=== PATIENT | male | born 1975 | race Caucasian/White ===

== ENCOUNTER 2017-11-27 17:24 | Inpatient (IN) | payer BC ==
[2017-11-27] MEDS ORDERED: MICONAZOLE 2% 57 GM Ointment TOP (19:00)
[2017-11-27] MEDS ORDERED: MAGNESIUM HYDROXIDE 30ML CUP GTB (19:00)
[2017-11-27] MEDS ORDERED: BISACODYL 10 MG SUPP PR (19:00)
[2017-11-27] MEDS: ALBUTEROL/IPRATROPIUM (NEB) 3 ML AMP HHN (19:56)
[2017-11-27] MEDS: DOCUSATE SODIUM 10 MG/ML (10ML CUP) GTB (22:10)
[2017-11-27] MEDS: RANITIDINE (15 MG/ML) 10ML CUP GTB (22:10)
[2017-11-27] MEDS: MICONAZOLE 2% 57 GM Ointment TOP (22:11)
[2017-11-27] MEDS: ATORVASTATIN 10 MG TAB GTB (22:11)
[2017-11-27] MEDS: HEPARIN 5,000 UNIT/0.5 ML VIAL SC (22:22)
[2017-11-28 06:34] LABS: ADD MAN DIFF? NO
[2017-11-28 06:43] LABS: WHITE BLOOD COUNT 9.6 10^3/ul (4.8-10.8)
[2017-11-28 06:43] LABS: ABNORMAL IP MESSAGE 1; BASOPHIL # 0.1 10^3/ul (0.0-0.1); BASOPHILS % 0.8 % (0.0-2.0); EOSINOPHILS # 1.2 10^3/ul (0.0-0.5); EOSINOPHILS % 12.4 % (0.0-7.0); HEMOGLOBIN 12.4 g/dl (14.0-18.0); LYMPHOCYTES # 1.5 10^3/ul (0.8-2.9); LYMPHOCYTES % 15.5 % (15.0-51.0); MEAN CORPUSCULAR HGB CONC 32.6 g/dl (32.0-37.0); MONOCYTE # 0.9 10^3/ul (0.3-0.9); MONOCYTES % 8.9 % (0.0-11.0); PLATELET COUNT 376 10^3/UL (140-415); POSITIVE DIFF @See below; RED BLOOD COUNT 4.13 10^6/ul (4.70-6.10); RED CELL DISTRIBUTION WIDTH 13.6 % (11.5-14.5)
[2017-11-28 07:08] LABS: ALANINE AMINOTRANSFERASE 51 IU/L (13-69); ALBUMIN 3.8 g/dl (3.3-4.9); ALBUMIN/GLOBULIN RATIO 1.08; ALKALINE PHOSPHATASE 127 IU/L (42-121); ANION GAP 14 (8-16); ASPARTATE AMINO TRANSFERASE 23 IU/L (15-46); BLOOD UREA NITROGEN 21 mg/dl (7-20); CALCIUM 9.8 mg/dl (8.4-10.2); CARBON DIOXIDE 31 mmol/L (21-31); CHLORIDE 100 mmol/L (97-110); CREATININE 0.68 mg/dl (0.61-1.24); GLUCOSE 109 mg/dl (70-220); SODIUM 141 mmol/L (135-144); TOTAL PROTEIN 7.3 g/dl (6.1-8.1)
[2017-11-28] MEDS: MODAFINIL 200 MG TAB GTB ×2 (09:00→11:34)
[2017-11-28] MEDS: ALBUTEROL/IPRATROPIUM (NEB) 3 ML AMP HHN ×3 (09:13→21:20)
[2017-11-28] MEDS: DOCUSATE SODIUM 10 MG/ML (10ML CUP) GTB ×2 (09:40→21:43)
[2017-11-28] MEDS: POLYETHYLENE GLYCOL 17 GM PACKET GTB (09:40)
[2017-11-28] MEDS: MICONAZOLE 2% 57 GM Ointment TOP ×2 (09:40→21:44)
[2017-11-28] MEDS: RANITIDINE (15 MG/ML) 10ML CUP GTB ×2 (09:40→21:43)
[2017-11-28] MEDS: CLOPIDOGREL 75 MG TAB GTB (09:42)
[2017-11-28] MEDS: ASPIRIN 81 MG TAB GTB (09:42)
[2017-11-28] MEDS: HEPARIN 5,000 UNIT/0.5 ML VIAL SC ×2 (09:42→22:05)
[2017-11-28] MEDS: LISINOPRIL 5 MG TAB GTB (09:43)
[2017-11-28] MEDS: BACLOFEN 10 MG TAB GTB ×2 (11:34→21:43)
[2017-11-28] MEDS: LORAZEPAM 0.5 MG TAB PO ×2 (11:35→22:06)
[2017-11-28] MEDS: ATORVASTATIN 10 MG TAB GTB (21:43)
[2017-11-29] MEDS: ALBUTEROL/IPRATROPIUM (NEB) 3 ML AMP HHN ×3 (07:29→21:21)
[2017-11-29] MEDS: RANITIDINE (15 MG/ML) 10ML CUP GTB ×2 (08:59→21:28)
[2017-11-29] MEDS: POLYETHYLENE GLYCOL 17 GM PACKET GTB (08:59)
[2017-11-29] MEDS: HEPARIN 5,000 UNIT/0.5 ML VIAL SC ×2 (09:00→21:43)
[2017-11-29] MEDS: DOCUSATE SODIUM 10 MG/ML (10ML CUP) GTB ×2 (09:00→21:28)
[2017-11-29] MEDS: MODAFINIL 200 MG TAB GTB (09:00)
[2017-11-29] MEDS: ASPIRIN 81 MG TAB GTB (09:00)
[2017-11-29] MEDS: BACLOFEN 10 MG TAB GTB ×2 (09:01→21:28)
[2017-11-29] MEDS: LISINOPRIL 5 MG TAB GTB (09:01)
[2017-11-29] MEDS: MICONAZOLE 2% 57 GM Ointment TOP ×2 (09:01→21:40)
[2017-11-29] MEDS: CLOPIDOGREL 75 MG TAB GTB (09:01)
[2017-11-29] MEDS: ATORVASTATIN 10 MG TAB GTB (21:28)
[2017-11-29] MEDS: LORAZEPAM 0.5 MG TAB PO (21:31)
[2017-11-29] MEDS: ACETAMINOPHEN 650MG/20.3ML CUP GTB (21:31)
[2017-11-30] MEDS: ACETAMINOPHEN 650MG/20.3ML CUP GTB (06:38)
[2017-11-30] MEDS: LORAZEPAM 0.5 MG TAB PO (06:38)
[2017-11-30] MEDS: ALBUTEROL/IPRATROPIUM (NEB) 3 ML AMP HHN ×3 (07:58→19:19)
[2017-11-30] MEDS: CLOPIDOGREL 75 MG TAB GTB (10:10)
[2017-11-30] MEDS: BACLOFEN 10 MG TAB GTB ×2 (10:10→21:56)
[2017-11-30] MEDS: POLYETHYLENE GLYCOL 17 GM PACKET GTB (10:11)
[2017-11-30] MEDS: RANITIDINE (15 MG/ML) 10ML CUP GTB ×2 (10:11→21:57)
[2017-11-30] MEDS: DOCUSATE SODIUM 10 MG/ML (10ML CUP) GTB ×2 (10:12→21:54)
[2017-11-30] MEDS: ASPIRIN 81 MG TAB GTB (10:12)
[2017-11-30] MEDS: MODAFINIL 200 MG TAB GTB (10:13)
[2017-11-30] MEDS: LISINOPRIL 5 MG TAB GTB (10:13)
[2017-11-30] MEDS: HEPARIN 5,000 UNIT/0.5 ML VIAL SC ×2 (10:14→21:59)
[2017-11-30] MEDS: MICONAZOLE 2% 57 GM Ointment TOP ×2 (10:19→22:00)
[2017-11-30] MEDS: ATORVASTATIN 10 MG TAB GTB (21:55)
[2017-12-01] MEDS: ALBUTEROL/IPRATROPIUM (NEB) 3 ML AMP HHN ×3 (07:47→19:59)
[2017-12-01] MEDS: MICONAZOLE 2% 57 GM Ointment TOP ×2 (08:55→22:31)
[2017-12-01] MEDS: HEPARIN 5,000 UNIT/0.5 ML VIAL SC ×2 (08:56→22:29)
[2017-12-01] MEDS: RANITIDINE (15 MG/ML) 10ML CUP GTB ×2 (08:57→22:24)
[2017-12-01] MEDS: DOCUSATE SODIUM 10 MG/ML (10ML CUP) GTB ×2 (08:57→22:24)
[2017-12-01] MEDS: ASPIRIN 81 MG TAB GTB (08:57)
[2017-12-01] MEDS: POLYETHYLENE GLYCOL 17 GM PACKET GTB (08:57)
[2017-12-01] MEDS: BACLOFEN 10 MG TAB GTB ×2 (08:58→22:25)
[2017-12-01] MEDS: CLOPIDOGREL 75 MG TAB GTB (08:58)
[2017-12-01] MEDS: MODAFINIL 200 MG TAB GTB (08:59)
[2017-12-01] MEDS: LISINOPRIL 5 MG TAB GTB (08:59)
[2017-12-01 13:10] LABS: ADD UMIC YES; UR AMORPHOUS CRYSTAL FEW /HPF (NONE SEEN); UR ASCORBIC ACID 40 mg/dL (NEGATIVE); UR BACTERIA FEW /HPF (NONE SEEN); UR BILIRUBIN (Dip) NEGATIVE (NEGATIVE); UR BLOOD (Dip) NEGATIVE (NEGATIVE); UR CLARITY CLOUDY (CLEAR); UR COLOR YELLOW (YELLOW); UR GLUCOSE (Dip) NEGATIVE (NEGATIVE); UR KETONES (Dip) NEGATIVE (NEGATIVE); UR LEUKOCYTE ESTERASE (Dip) NEGATIVE Leu/ul (NEGATIVE); UR NITRITE (Dip) NEGATIVE (NEGATIVE); UR RBC 3 /HPF (0-5); UR SPECIFIC GRAVITY (Dip) 1.017 (1.003-1.030); UR TOTAL PROTEIN (Dip) NEGATIVE (NEGATIVE); UR UROBILINOGEN (Dip) 2+ mg/dL (NEGATIVE); UR WBC 7 /HPF (0-5)
[2017-12-01] MEDS: ATORVASTATIN 10 MG TAB GTB (22:24)
[2017-12-02 07:27] LABS: ADD MAN DIFF? NO
[2017-12-02 07:35] LABS: ABNORMAL IP MESSAGE 1; BASOPHIL # 0.1 10^3/ul (0.0-0.1); BASOPHILS % 0.9 % (0.0-2.0); EOSINOPHILS % 13.7 % (0.0-7.0); HEMATOCRIT 35.4 % (42.0-52.0); HEMOGLOBIN 11.5 g/dl (14.0-18.0); LYMPHOCYTES # 1.7 10^3/ul (0.8-2.9); LYMPHOCYTES % 21.8 % (15.0-51.0); MEAN CORPUSCULAR HEMOGLOBIN 30.2 pg (29.0-33.0); MEAN CORPUSCULAR HGB CONC 32.5 g/dl (32.0-37.0); MEAN CORPUSCULAR VOLUME 92.9 fl (82.0-101.0); MEAN PLATELET VOLUME 11.1 fl (7.4-10.4); MONOCYTE # 0.8 10^3/ul (0.3-0.9); MONOCYTES % 9.9 % (0.0-11.0); NEUTROPHIL # 4.1 10^3/ul (1.6-7.5); NEUTROPHILS % 53.4 % (39.0-77.0); PLATELET COUNT 321 10^3/UL (140-415); POSITIVE DIFF @See below; RED BLOOD COUNT 3.81 10^6/ul (4.70-6.10); RED CELL DISTRIBUTION WIDTH 13.6 % (11.5-14.5)
[2017-12-02 07:35] LABS: WHITE BLOOD COUNT 7.6 10^3/ul (4.8-10.8)
[2017-12-02 07:55] LABS: ANION GAP 14 (8-16); BLOOD UREA NITROGEN 18 mg/dl (7-20); CALCIUM 9.4 mg/dl (8.4-10.2); CARBON DIOXIDE 29 mmol/L (21-31); CHLORIDE 101 mmol/L (97-110); CREATININE 0.61 mg/dl (0.61-1.24); GLUCOSE 99 mg/dl (70-220); MAGNESIUM 2.1 mg/dl (1.7-2.5); PHOSPHORUS 4.6 mg/dl (2.5-4.9); SODIUM 140 mmol/L (135-144)
[2017-12-02] MEDS: RANITIDINE (15 MG/ML) 10ML CUP GTB ×2 (09:30→20:20)
[2017-12-02] MEDS: POLYETHYLENE GLYCOL 17 GM PACKET GTB (09:30)
[2017-12-02] MEDS: DOCUSATE SODIUM 10 MG/ML (10ML CUP) GTB ×2 (09:30→20:20)
[2017-12-02] MEDS: HEPARIN 5,000 UNIT/0.5 ML VIAL SC ×2 (09:31→20:21)
[2017-12-02] MEDS: LISINOPRIL 5 MG TAB GTB (09:31)
[2017-12-02] MEDS: BACLOFEN 10 MG TAB GTB ×2 (09:31→20:21)
[2017-12-02] MEDS: CLOPIDOGREL 75 MG TAB GTB (09:32)
[2017-12-02] MEDS: ASPIRIN 81 MG TAB GTB (09:32)
[2017-12-02] MEDS: MICONAZOLE 2% 57 GM Ointment TOP ×2 (09:37→20:26)
[2017-12-02] MEDS: MODAFINIL 200 MG TAB GTB (09:37)
[2017-12-02] MEDS: ALBUTEROL/IPRATROPIUM (NEB) 3 ML AMP HHN ×3 (11:00→19:48)
[2017-12-02] MEDS: ATORVASTATIN 10 MG TAB GTB (20:21)
[2017-12-02] MEDS: LORAZEPAM 0.5 MG TAB PO (20:26)
[2017-12-03] MEDS: ALBUTEROL/IPRATROPIUM (NEB) 3 ML AMP HHN ×3 (07:52→19:46)
[2017-12-03] MEDS: MODAFINIL 200 MG TAB GTB (09:46)
[2017-12-03] MEDS: CLOPIDOGREL 75 MG TAB GTB (09:46)
[2017-12-03] MEDS: HEPARIN 5,000 UNIT/0.5 ML VIAL SC ×2 (09:47→21:25)
[2017-12-03] MEDS: BACLOFEN 10 MG TAB GTB ×2 (09:48→21:11)
[2017-12-03] MEDS: ASPIRIN 81 MG TAB GTB (09:48)
[2017-12-03] MEDS: DOCUSATE SODIUM 10 MG/ML (10ML CUP) GTB ×2 (09:48→21:09)
[2017-12-03] MEDS: RANITIDINE (15 MG/ML) 10ML CUP GTB ×2 (09:49→21:09)
[2017-12-03] MEDS: LISINOPRIL 5 MG TAB GTB (09:49)
[2017-12-03] MEDS: POLYETHYLENE GLYCOL 17 GM PACKET GTB (09:49)
[2017-12-03] MEDS: MICONAZOLE 2% 57 GM Ointment TOP ×2 (14:15→21:11)
[2017-12-03] MEDS: LORAZEPAM 0.5 MG TAB PO (18:36)
[2017-12-03] MEDS: ATORVASTATIN 10 MG TAB GTB (21:10)
[2017-12-04] MEDS: ALBUTEROL/IPRATROPIUM (NEB) 3 ML AMP HHN ×3 (08:05→21:14)
[2017-12-04] MEDS: MODAFINIL 200 MG TAB GTB (09:00)
[2017-12-04] MEDS: LISINOPRIL 5 MG TAB GTB ×2 (09:00→11:19)
[2017-12-04] MEDS: DOCUSATE SODIUM 10 MG/ML (10ML CUP) GTB ×2 (09:06→21:12)
[2017-12-04] MEDS: CLOPIDOGREL 75 MG TAB GTB (09:06)
[2017-12-04] MEDS: ASPIRIN 81 MG TAB GTB (09:06)
[2017-12-04] MEDS: RANITIDINE (15 MG/ML) 10ML CUP GTB ×2 (09:07→21:12)
[2017-12-04] MEDS: BACLOFEN 10 MG TAB GTB ×2 (09:07→21:13)
[2017-12-04] MEDS: POLYETHYLENE GLYCOL 17 GM PACKET GTB (09:07)
[2017-12-04] MEDS: HEPARIN 5,000 UNIT/0.5 ML VIAL SC ×2 (09:36→21:25)
[2017-12-04] MEDS: MICONAZOLE 2% 57 GM Ointment TOP ×2 (11:20→21:22)
[2017-12-04] MEDS: ATORVASTATIN 10 MG TAB GTB (21:13)
[2017-12-05] MEDS: ALBUTEROL/IPRATROPIUM (NEB) 3 ML AMP HHN ×3 (08:11→20:29)
[2017-12-05] MEDS: DOCUSATE SODIUM 10 MG/ML (10ML CUP) GTB ×2 (09:42→21:29)
[2017-12-05] MEDS: POLYETHYLENE GLYCOL 17 GM PACKET GTB (09:42)
[2017-12-05] MEDS: RANITIDINE (15 MG/ML) 10ML CUP GTB ×2 (09:42→21:30)
[2017-12-05] MEDS: MODAFINIL 200 MG TAB GTB (09:42)
[2017-12-05] MEDS: MICONAZOLE 2% 57 GM Ointment TOP (09:42)
[2017-12-05] MEDS: CLOPIDOGREL 75 MG TAB GTB (09:42)
[2017-12-05] MEDS: LISINOPRIL 5 MG TAB GTB (09:44)
[2017-12-05] MEDS: ASPIRIN 81 MG TAB GTB (09:44)
[2017-12-05] MEDS: BACLOFEN 10 MG TAB GTB ×2 (09:44→21:29)
[2017-12-05] MEDS: HEPARIN 5,000 UNIT/0.5 ML VIAL SC ×2 (09:55→21:44)
[2017-12-05] MEDS: ATORVASTATIN 10 MG TAB GTB (21:29)
[2017-12-06] MEDS: ALBUTEROL/IPRATROPIUM (NEB) 3 ML AMP HHN ×2 (08:00→15:47)
[2017-12-06] MEDS: ASPIRIN 81 MG TAB GTB (09:33)
[2017-12-06] MEDS: DOCUSATE SODIUM 10 MG/ML (10ML CUP) GTB ×2 (09:33→20:11)
[2017-12-06] MEDS: POLYETHYLENE GLYCOL 17 GM PACKET GTB (09:34)
[2017-12-06] MEDS: BACLOFEN 10 MG TAB GTB ×2 (09:34→20:11)
[2017-12-06] MEDS: CLOPIDOGREL 75 MG TAB GTB (09:34)
[2017-12-06] MEDS: LISINOPRIL 5 MG TAB GTB (09:35)
[2017-12-06] MEDS: RANITIDINE (15 MG/ML) 10ML CUP GTB ×2 (09:35→20:11)
[2017-12-06] MEDS: MODAFINIL 200 MG TAB GTB (09:35)
[2017-12-06] MEDS: HEPARIN 5,000 UNIT/0.5 ML VIAL SC ×2 (10:00→20:32)
[2017-12-06] MEDS: LORAZEPAM 0.5 MG TAB PO (17:09)
[2017-12-06] MEDS: ATORVASTATIN 10 MG TAB GTB (20:16)
[2017-12-07] MEDS: LORAZEPAM 0.5 MG TAB PO (01:15)
[2017-12-07] MEDS: ALBUTEROL/IPRATROPIUM (NEB) 3 ML AMP HHN ×3 (07:57→21:19)
[2017-12-07] MEDS: MODAFINIL 200 MG TAB GTB (09:46)
[2017-12-07] MEDS: BACLOFEN 10 MG TAB GTB ×2 (09:47→21:02)
[2017-12-07] MEDS: DOCUSATE SODIUM 10 MG/ML (10ML CUP) GTB ×2 (09:47→21:02)
[2017-12-07] MEDS: RANITIDINE (15 MG/ML) 10ML CUP GTB ×2 (09:47→21:02)
[2017-12-07] MEDS: CLOPIDOGREL 75 MG TAB GTB (09:48)
[2017-12-07] MEDS: LISINOPRIL 5 MG TAB GTB (09:48)
[2017-12-07] MEDS: ASPIRIN 81 MG TAB GTB (09:48)
[2017-12-07] MEDS: POLYETHYLENE GLYCOL 17 GM PACKET GTB (09:49)
[2017-12-07] MEDS: HEPARIN 5,000 UNIT/0.5 ML VIAL SC ×2 (10:16→21:18)
[2017-12-07] MEDS: ATORVASTATIN 10 MG TAB GTB (21:03)
[2017-12-08] MEDS: RANITIDINE (15 MG/ML) 10ML CUP GTB ×2 (09:38→21:47)
[2017-12-08] MEDS: POLYETHYLENE GLYCOL 17 GM PACKET GTB (09:38)
[2017-12-08] MEDS: DOCUSATE SODIUM 10 MG/ML (10ML CUP) GTB ×2 (09:38→21:47)
[2017-12-08] MEDS: BACLOFEN 10 MG TAB GTB ×2 (09:39→21:47)
[2017-12-08] MEDS: MODAFINIL 200 MG TAB GTB (09:39)
[2017-12-08] MEDS: CLOPIDOGREL 75 MG TAB GTB (09:39)
[2017-12-08] MEDS: LISINOPRIL 5 MG TAB GTB (09:39)
[2017-12-08] MEDS: ASPIRIN 81 MG TAB GTB (09:40)
[2017-12-08] MEDS: HEPARIN 5,000 UNIT/0.5 ML VIAL SC ×2 (09:43→21:50)
[2017-12-08] MEDS: ALBUTEROL/IPRATROPIUM (NEB) 3 ML AMP HHN ×4 (09:58→20:13)
[2017-12-08] MEDS: ATORVASTATIN 10 MG TAB GTB (21:48)
[2017-12-09] MEDS: ALBUTEROL/IPRATROPIUM (NEB) 3 ML AMP HHN ×3 (07:42→20:00)
[2017-12-09] MEDS: HEPARIN 5,000 UNIT/0.5 ML VIAL SC ×2 (10:31→21:37)
[2017-12-09] MEDS: MODAFINIL 200 MG TAB GTB (10:32)
[2017-12-09] MEDS: LISINOPRIL 5 MG TAB GTB (10:33)
[2017-12-09] MEDS: BACLOFEN 10 MG TAB GTB ×2 (10:34→21:36)
[2017-12-09] MEDS: ASPIRIN 81 MG TAB GTB (10:34)
[2017-12-09] MEDS: DOCUSATE SODIUM 10 MG/ML (10ML CUP) GTB ×2 (10:36→21:34)
[2017-12-09] MEDS: POLYETHYLENE GLYCOL 17 GM PACKET GTB (10:36)
[2017-12-09] MEDS: CLOPIDOGREL 75 MG TAB GTB (10:37)
[2017-12-09] MEDS: RANITIDINE (15 MG/ML) 10ML CUP GTB ×2 (10:38→21:34)
[2017-12-09] MEDS: ATORVASTATIN 10 MG TAB GTB (21:35)
[2017-12-10] MEDS: ALBUTEROL/IPRATROPIUM (NEB) 3 ML AMP HHN ×3 (07:32→19:41)
[2017-12-10] MEDS: ASPIRIN 81 MG TAB GTB (09:17)
[2017-12-10] MEDS: POLYETHYLENE GLYCOL 17 GM PACKET GTB (09:17)
[2017-12-10] MEDS: DOCUSATE SODIUM 10 MG/ML (10ML CUP) GTB ×2 (09:17→21:32)
[2017-12-10] MEDS: BACLOFEN 10 MG TAB GTB ×2 (09:18→21:33)
[2017-12-10] MEDS: MODAFINIL 200 MG TAB GTB (09:18)
[2017-12-10] MEDS: RANITIDINE (15 MG/ML) 10ML CUP GTB ×2 (09:18→21:32)
[2017-12-10] MEDS: LORAZEPAM 0.5 MG TAB PO (09:18)
[2017-12-10] MEDS: LISINOPRIL 5 MG TAB GTB (09:18)
[2017-12-10] MEDS: CLOPIDOGREL 75 MG TAB GTB (09:19)
[2017-12-10] MEDS: AZITHROMYCIN 250 MG TAB PO (11:19)
[2017-12-10 12:04] LABS: ADD MAN DIFF? NO
[2017-12-10 12:07] LABS: BASOPHIL # 0.1 10^3/ul (0.0-0.1); BASOPHILS % 0.7 % (0.0-2.0); EOSINOPHILS # 0.2 10^3/ul (0.0-0.5); EOSINOPHILS % 2.1 % (0.0-7.0); HEMATOCRIT 38.4 % (42.0-52.0); HEMOGLOBIN 12.4 g/dl (14.0-18.0); LYMPHOCYTES # 1.3 10^3/ul (0.8-2.9); LYMPHOCYTES % 18.1 % (15.0-51.0); MEAN CORPUSCULAR HEMOGLOBIN 29.6 pg (29.0-33.0); MEAN CORPUSCULAR HGB CONC 32.3 g/dl (32.0-37.0); MEAN CORPUSCULAR VOLUME 91.6 fl (82.0-101.0); MEAN PLATELET VOLUME 10.8 fl (7.4-10.4); MONOCYTE # 0.6 10^3/ul (0.3-0.9); MONOCYTES % 8.7 % (0.0-11.0); NEUTROPHIL # 4.9 10^3/ul (1.6-7.5); PLATELET COUNT 313 10^3/UL (140-415); RED BLOOD COUNT 4.19 10^6/ul (4.70-6.10); RED CELL DISTRIBUTION WIDTH 13.2 % (11.5-14.5)
[2017-12-10 12:29] LABS: ANION GAP 14 (8-16); BLOOD UREA NITROGEN 18 mg/dl (7-20); CALCIUM 9.7 mg/dl (8.4-10.2); CARBON DIOXIDE 27 mmol/L (21-31); CHLORIDE 101 mmol/L (97-110); CREATININE 0.59 mg/dl (0.61-1.24); GLUCOSE 99 mg/dl (70-220); POTASSIUM 4.4 mmol/L (3.5-5.1); SODIUM 138 mmol/L (135-144)
[2017-12-10] MEDS: ATORVASTATIN 10 MG TAB GTB (21:32)
[2017-12-11] MEDS: ALBUTEROL/IPRATROPIUM (NEB) 3 ML AMP HHN ×3 (08:34→19:17)
[2017-12-11] MEDS: POLYETHYLENE GLYCOL 17 GM PACKET GTB (09:00)
[2017-12-11] MEDS: ASPIRIN 81 MG TAB GTB (09:30)
[2017-12-11] MEDS: CLOPIDOGREL 75 MG TAB GTB (09:31)
[2017-12-11] MEDS: AZITHROMYCIN 250 MG TAB PO (09:31)
[2017-12-11] MEDS: LISINOPRIL 5 MG TAB GTB (09:32)
[2017-12-11] MEDS: BACLOFEN 10 MG TAB GTB ×2 (09:32→21:04)
[2017-12-11] MEDS: HEPARIN 5,000 UNIT/0.5 ML VIAL SC ×2 (09:35→21:21)
[2017-12-11] MEDS: MODAFINIL 200 MG TAB GTB (10:27)
[2017-12-11] MEDS ORDERED: ACETAMINOPHEN 650MG/20.3ML CUP PO (13:00)
[2017-12-11] MEDS ORDERED: RANITIDINE (15 MG/ML) 10ML CUP PO (21:00)
[2017-12-11] MEDS: RANITIDINE 150 MG TAB PO (21:03)
[2017-12-11] MEDS: DOCUSATE SODIUM 100 MG CAP PO (21:04)
[2017-12-11] MEDS: ATORVASTATIN 10 MG TAB GTB (21:04)
[2017-12-12] MEDS: ALBUTEROL/IPRATROPIUM (NEB) 3 ML AMP HHN ×3 (07:25→20:04)
[2017-12-12] MEDS: ASPIRIN 81 MG TAB GTB (10:28)
[2017-12-12] MEDS: POLYETHYLENE GLYCOL 17 GM PACKET GTB (10:28)
[2017-12-12] MEDS: AZITHROMYCIN 250 MG TAB PO (10:28)
[2017-12-12] MEDS: RANITIDINE 150 MG TAB PO ×2 (10:28→21:30)
[2017-12-12] MEDS: MODAFINIL 200 MG TAB GTB (10:28)
[2017-12-12] MEDS: DOCUSATE SODIUM 100 MG CAP PO ×2 (10:29→21:30)
[2017-12-12] MEDS: BACLOFEN 10 MG TAB GTB ×2 (10:29→21:30)
[2017-12-12] MEDS: LISINOPRIL 5 MG TAB GTB (10:29)
[2017-12-12] MEDS: HEPARIN 5,000 UNIT/0.5 ML VIAL SC ×2 (10:30→21:39)
[2017-12-12] MEDS: CLOPIDOGREL 75 MG TAB GTB (10:31)
[2017-12-12] MEDS: ATORVASTATIN 10 MG TAB GTB (21:31)
[2017-12-13] MEDS: HEPARIN 5,000 UNIT/0.5 ML VIAL SC (09:00)
[2017-12-13] MEDS: ASPIRIN 81 MG TAB GTB (09:00)
[2017-12-13] MEDS: ALBUTEROL/IPRATROPIUM (NEB) 3 ML AMP HHN ×3 (09:18→19:42)
[2017-12-13] MEDS: POLYETHYLENE GLYCOL 17 GM PACKET GTB (10:07)
[2017-12-13] MEDS: CLOPIDOGREL 75 MG TAB GTB (10:07)
[2017-12-13] MEDS: AZITHROMYCIN 250 MG TAB PO (10:07)
[2017-12-13] MEDS: DOCUSATE SODIUM 100 MG CAP PO ×2 (10:07→21:25)
[2017-12-13] MEDS: RANITIDINE 150 MG TAB PO ×2 (10:08→21:25)
[2017-12-13] MEDS: MODAFINIL 200 MG TAB GTB (10:08)
[2017-12-13] MEDS: BACLOFEN 10 MG TAB GTB (10:08)
[2017-12-13] MEDS: LISINOPRIL 5 MG TAB GTB (10:08)
[2017-12-13] MEDS ORDERED: MAGNESIUM HYDROXIDE 30ML CUP PO (16:30)
[2017-12-13] MEDS: BACLOFEN 10 MG TAB PO (21:26)
[2017-12-13] MEDS: ATORVASTATIN 10 MG TAB PO (21:26)
[2017-12-14] MEDS: ALBUTEROL/IPRATROPIUM (NEB) 3 ML AMP HHN ×3 (08:11→21:50)
[2017-12-14] MEDS: POLYETHYLENE GLYCOL 17 GM PACKET PO (09:00)
[2017-12-14] MEDS: LISINOPRIL 5 MG TAB PO ×2 (09:00→09:34)
[2017-12-14] MEDS: AZITHROMYCIN 250 MG TAB PO (09:32)
[2017-12-14] MEDS: DOCUSATE SODIUM 100 MG CAP PO ×2 (09:32→20:08)
[2017-12-14] MEDS: MODAFINIL 200 MG TAB PO (09:32)
[2017-12-14] MEDS: RANITIDINE 150 MG TAB PO ×2 (09:32→20:08)
[2017-12-14] MEDS: CLOPIDOGREL 75 MG TAB PO (09:32)
[2017-12-14] MEDS: BACLOFEN 10 MG TAB PO ×2 (09:33→20:09)
[2017-12-14] MEDS: ASPIRIN 81 MG TAB PO (09:34)
[2017-12-14] MEDS: ATORVASTATIN 10 MG TAB PO (20:10)
[2017-12-15] MEDS: ALBUTEROL/IPRATROPIUM (NEB) 3 ML AMP HHN ×3 (07:49→20:41)
[2017-12-15] MEDS: POLYETHYLENE GLYCOL 17 GM PACKET PO (09:00)
[2017-12-15] MEDS: RANITIDINE 150 MG TAB PO ×2 (10:05→20:13)
[2017-12-15] MEDS: CLOPIDOGREL 75 MG TAB PO (10:06)
[2017-12-15] MEDS: ASPIRIN 81 MG TAB PO (10:06)
[2017-12-15] MEDS: MODAFINIL 200 MG TAB PO (10:06)
[2017-12-15] MEDS: BACLOFEN 10 MG TAB PO ×2 (10:06→20:13)
[2017-12-15] MEDS: DOCUSATE SODIUM 100 MG CAP PO ×2 (10:06→20:12)
[2017-12-15] MEDS: AZITHROMYCIN 250 MG TAB PO (10:06)
[2017-12-15] MEDS: LISINOPRIL 5 MG TAB PO (10:07)
[2017-12-15] MEDS: ATORVASTATIN 10 MG TAB PO (20:13)
[2017-12-16] MEDS: ALBUTEROL/IPRATROPIUM (NEB) 3 ML AMP HHN ×3 (08:33→19:23)
[2017-12-16] MEDS: POLYETHYLENE GLYCOL 17 GM PACKET PO (09:00)
[2017-12-16] MEDS: RANITIDINE 150 MG TAB PO ×2 (09:52→20:55)
[2017-12-16] MEDS: MODAFINIL 200 MG TAB PO (09:52)
[2017-12-16] MEDS: DOCUSATE SODIUM 100 MG CAP PO ×2 (09:53→20:55)
[2017-12-16] MEDS: ASPIRIN 81 MG TAB PO (09:53)
[2017-12-16] MEDS: LISINOPRIL 5 MG TAB PO (09:54)
[2017-12-16] MEDS: CLOPIDOGREL 75 MG TAB PO (09:54)
[2017-12-16] MEDS: BACLOFEN 10 MG TAB PO ×2 (09:54→20:54)
[2017-12-16] MEDS: ATORVASTATIN 10 MG TAB PO (20:54)
[2017-12-17] MEDS: ALBUTEROL/IPRATROPIUM (NEB) 3 ML AMP HHN ×3 (08:00→19:41)
[2017-12-17] MEDS: POLYETHYLENE GLYCOL 17 GM PACKET PO (09:37)
[2017-12-17] MEDS: MODAFINIL 200 MG TAB PO (09:37)
[2017-12-17] MEDS: RANITIDINE 150 MG TAB PO ×2 (09:37→20:51)
[2017-12-17] MEDS: BACLOFEN 10 MG TAB PO ×2 (09:37→20:51)
[2017-12-17] MEDS: ASPIRIN 81 MG TAB PO (09:37)
[2017-12-17] MEDS: DOCUSATE SODIUM 100 MG CAP PO ×2 (09:37→20:51)
[2017-12-17] MEDS: LISINOPRIL 5 MG TAB PO (09:38)
[2017-12-17] MEDS: CLOPIDOGREL 75 MG TAB PO (09:38)
[2017-12-17] MEDS: ATORVASTATIN 10 MG TAB PO (20:51)
[2017-12-18] MEDS: ALBUTEROL/IPRATROPIUM (NEB) 3 ML AMP HHN ×3 (08:16→20:02)
[2017-12-18] MEDS: POLYETHYLENE GLYCOL 17 GM PACKET PO (09:00)
[2017-12-18] MEDS: MODAFINIL 200 MG TAB PO (10:10)
[2017-12-18] MEDS: ASPIRIN 81 MG TAB PO (10:12)
[2017-12-18] MEDS: CLOPIDOGREL 75 MG TAB PO (10:13)
[2017-12-18] MEDS: LISINOPRIL 5 MG TAB PO (10:13)
[2017-12-18] MEDS: RANITIDINE 150 MG TAB PO ×2 (10:14→20:33)
[2017-12-18] MEDS: BACLOFEN 10 MG TAB PO ×2 (10:14→20:34)
[2017-12-18] MEDS: DOCUSATE SODIUM 100 MG CAP PO ×2 (10:14→20:34)
[2017-12-18] MEDS: ATORVASTATIN 10 MG TAB PO (20:32)
[2017-12-19] MEDS: ALBUTEROL/IPRATROPIUM (NEB) 3 ML AMP HHN ×3 (09:00→20:55)
[2017-12-19] MEDS: POLYETHYLENE GLYCOL 17 GM PACKET PO (09:00)
[2017-12-19] MEDS: RANITIDINE 150 MG TAB PO ×2 (09:01→21:41)
[2017-12-19] MEDS: CLOPIDOGREL 75 MG TAB PO (09:01)
[2017-12-19] MEDS: BACLOFEN 10 MG TAB PO ×2 (09:01→21:41)
[2017-12-19] MEDS: LISINOPRIL 5 MG TAB PO (09:01)
[2017-12-19] MEDS: DOCUSATE SODIUM 100 MG CAP PO ×2 (09:02→21:41)
[2017-12-19] MEDS: ASPIRIN 81 MG TAB PO (09:02)
[2017-12-19] MEDS: ATORVASTATIN 10 MG TAB PO (21:40)
[2017-12-20] MEDS: ALBUTEROL/IPRATROPIUM (NEB) 3 ML AMP HHN ×3 (08:00→20:00)
[2017-12-20] MEDS: POLYETHYLENE GLYCOL 17 GM PACKET PO (09:00)
[2017-12-20 09:14] LABS: ADD MAN DIFF? NO
[2017-12-20] MEDS: BACLOFEN 10 MG TAB PO ×2 (09:19→20:31)
[2017-12-20] MEDS: ASPIRIN 81 MG TAB PO (09:19)
[2017-12-20] MEDS: DOCUSATE SODIUM 100 MG CAP PO ×2 (09:19→20:31)
[2017-12-20] MEDS: RANITIDINE 150 MG TAB PO ×2 (09:20→20:32)
[2017-12-20] MEDS: LISINOPRIL 5 MG TAB PO (09:20)
[2017-12-20] MEDS: CLOPIDOGREL 75 MG TAB PO (09:20)
[2017-12-20 09:46] LABS: ANION GAP 13 (8-16); BLOOD UREA NITROGEN 11 mg/dl (7-20); CALCIUM 9.7 mg/dl (8.4-10.2); CARBON DIOXIDE 26 mmol/L (21-31); CHLORIDE 106 mmol/L (97-110); CREATININE 0.59 mg/dl (0.61-1.24); GLUCOSE 141 mg/dl (70-220); MAGNESIUM 1.6 mg/dl (1.7-2.5); PHOSPHORUS 3.8 mg/dl (2.5-4.9); POTASSIUM 3.7 mmol/L (3.5-5.1); SODIUM 141 mmol/L (135-144)
[2017-12-20 10:13] LABS: BASOPHIL # 0.1 10^3/ul (0.0-0.1); BASOPHILS % 0.8 % (0.0-2.0); EOSINOPHILS # 0.1 10^3/ul (0.0-0.5); EOSINOPHILS % 1.7 % (0.0-7.0); HEMATOCRIT 38.4 % (42.0-52.0); HEMOGLOBIN 12.6 g/dl (14.0-18.0); LYMPHOCYTES # 0.9 10^3/ul (0.8-2.9); LYMPHOCYTES % 15.7 % (15.0-51.0); MEAN CORPUSCULAR HGB CONC 32.8 g/dl (32.0-37.0); MEAN CORPUSCULAR VOLUME 91.4 fl (82.0-101.0); MONOCYTE # 0.3 10^3/ul (0.3-0.9); MONOCYTES % 4.7 % (0.0-11.0); NEUTROPHIL # 4.6 10^3/ul (1.6-7.5); NEUTROPHILS % 76.9 % (39.0-77.0); PLATELET COUNT 275 10^3/UL (140-415); RED CELL DISTRIBUTION WIDTH 13.1 % (11.5-14.5)
[2017-12-20] MEDS: ATORVASTATIN 10 MG TAB PO (20:32)
[2017-12-21] MEDS: DOCUSATE SODIUM 100 MG CAP PO ×2 (08:19→19:52)
[2017-12-21] MEDS: BACLOFEN 10 MG TAB PO ×2 (08:19→19:51)
[2017-12-21] MEDS: RANITIDINE 150 MG TAB PO ×2 (08:19→19:51)
[2017-12-21] MEDS: LISINOPRIL 5 MG TAB PO (08:20)
[2017-12-21] MEDS: CLOPIDOGREL 75 MG TAB PO (08:20)
[2017-12-21] MEDS: POLYETHYLENE GLYCOL 17 GM PACKET PO (08:21)
[2017-12-21] MEDS: ASPIRIN 81 MG TAB PO (08:21)
[2017-12-21] MEDS: ALBUTEROL/IPRATROPIUM (NEB) 3 ML AMP HHN ×3 (08:55→20:00)
[2017-12-21] MEDS: ATORVASTATIN 10 MG TAB PO (19:51)
[2017-12-22] MEDS: ALBUTEROL/IPRATROPIUM (NEB) 3 ML AMP HHN ×3 (08:00→21:56)
[2017-12-22] MEDS: DOCUSATE SODIUM 100 MG CAP PO ×2 (08:45→21:00)
[2017-12-22] MEDS: ASPIRIN 81 MG TAB PO (08:45)
[2017-12-22] MEDS: BACLOFEN 10 MG TAB PO ×2 (08:45→21:09)
[2017-12-22] MEDS: CLOPIDOGREL 75 MG TAB PO (08:46)
[2017-12-22] MEDS: LISINOPRIL 5 MG TAB PO (08:46)
[2017-12-22] MEDS: RANITIDINE 150 MG TAB PO ×2 (08:48→21:07)
[2017-12-22] MEDS: POLYETHYLENE GLYCOL 17 GM PACKET PO (08:57)
[2017-12-22] MEDS: ATORVASTATIN 10 MG TAB PO (21:07)
[2017-12-23] MEDS: ALBUTEROL/IPRATROPIUM (NEB) 3 ML AMP HHN ×2 (08:32→13:20)
[2017-12-23] MEDS: POLYETHYLENE GLYCOL 17 GM PACKET PO (09:00)
[2017-12-23] MEDS: CLOPIDOGREL 75 MG TAB PO (09:23)
[2017-12-23] MEDS: RANITIDINE 150 MG TAB PO (09:23)
[2017-12-23] MEDS: BACLOFEN 10 MG TAB PO (09:23)
[2017-12-23] MEDS: DOCUSATE SODIUM 100 MG CAP PO (09:28)
[2017-12-23] MEDS: ASPIRIN 81 MG TAB PO (09:28)
[2017-12-23] MEDS: LISINOPRIL 5 MG TAB PO (09:28)
== END 2017-12-23 16:30 | disposition home health service (06) | DRG 56 ==
LOC: VRC 17:24
PROC: F07Z5ZZ Bed Mobility Treatment (ICD-10-PCS; principal; 2017-11-27)
PROC: F08Z2ZZ Grooming/Personal Hygiene Treatment (ICD-10-PCS; 2017-11-27)
PROC: F06Z6ZZ Communicative/Cognitive Integration Skills Treatment (ICD-10-PCS; 2017-11-27)
PROC: F06ZDZZ Swallowing Dysfunction Treatment (ICD-10-PCS; 2017-11-27)
DX: I69.851 Hemiplegia and hemiparesis following other cerebrovascular disease affecting right dominant side (principal); G93.40 Encephalopathy, unspecified; J96.10 Chronic respiratory failure, unspecified whether with hypoxia or hypercapnia; Z93.0 Tracheostomy status; R13.10 Dysphagia, unspecified; F01.50 Vascular dementia, unspecified severity, without behavioral disturbance, psychotic disturbance, mood disturbance, and anxiety; I69.891 Dysphagia following other cerebrovascular disease; I69.820 Aphasia following other cerebrovascular disease; D64.9 Anemia, unspecified; I10 Essential (primary) hypertension; E78.5 Hyperlipidemia, unspecified; G40.909 Epilepsy, unspecified, not intractable, without status epilepticus; R25.2 Cramp and spasm; Z79.82 Long term (current) use of aspirin; F32.9 Major depressive disorder, single episode, unspecified; F41.9 Anxiety disorder, unspecified; F06.31 Mood disorder due to known physiological condition with depressive features; M70.21 Olecranon bursitis, right elbow
CPT/HCPCS: 73070; 74230; 80048; 80053; 81001; 82962; 83735; 84100; 85025; 87070; 87081; 87086; 92507; 92523; 92526; 92610; 92611; 94640; 94664; 97110; 97112; 97116; 97163; 97167; 97530; 97535; 97542